=== PATIENT | female | born 1955 | race African-American/Black ===

== ENCOUNTER 2023-03-18 09:15 | Day surgery (SDC) | payer OTHER, SELFPAY ==
--- NOTE | 2023-03-14 12:02 | P.CONAN_ITS ---
Documented by User: Salena Luna NP 03/14/23 12:03 HPI - Anesthesia Eval Consult details Narrative: 67yo F for Left Cataract Extraction IOL Insertion Medically cleared No previous cataract on record Anesthesia Pre-Procedure Meds Is the patient on any of the following meds?: Dulaglutide (Trulicity) [facility] Past Medical History Medical History History of loss of consciousness Hx of hearing loss On supplemental oxygen by nasal cannula EDD treated with BiPAP Slow to wake up after anesthesia Pain in right shoulder Venereal warts Smoker Polymyalgia rheumatica PVD (peripheral vascular disease) OAB (overactive bladder) Sciatica Low back pain Osteoarthritis Obesity, morbid EDD (obstructive sleep apnea) Neuropathy Muscle cramps Insomnia Hx of hypoglycemia Hypertension Hyperlipemia Hx of fall Headache GERD (gastroesophageal reflux disease) Diabetes Loose, teeth Wears dentures Vitamin D deficiency Oxygen dependent Asthma COPD (chronic obstructive pulmonary disease) Systolic CHF Constipation CKD (chronic kidney disease) Anemia, iron deficiency Seasonal allergies Abnormal stress test Bilateral hearing loss Anxiety PAD (peripheral artery disease) Cataracts, bilateral Depression Stable angina Coronary artery disease LAMB (dyspnea on exertion) Claudication Surgical History Surgical History Hx of colonoscopy Hx laparoscopic cholecystectomy Hx of section Hx of CABG (2005) History of lobectomy of lung (~2016) Social History Social History Housing Other:: senior apartment Are you a primary resident care associate to a significant other at home: No Do you presently have visiting nurse or other home services: Yes ([employer] and very supportive daughter) Patient Tobacco Use Status: Former Tobacco user Quit Date: 2016 Tobacco use type: Cigarette Use of substances other than those prescribed or required for medical reasons: No Have you been hit, kicked, punched, or otherwise hurt by someone within the past year? If so, by whom?: No Are you DNR?: No Advance Directives: No Advance Directives Information Provided: Yes Advance Directives on File: No Recently lost weight without trying: No Meds Allergies Allergy/AdvReac Type Severity Reaction Status Date / Time ampicillin Allergy Intermediate Hives Verified 03/15/23 11:45 penicillin V [PENICILLIN V] Allergy Intermediate RASH Verified 03/15/23 11:45 shellfish derived Allergy Intermediate Hives Verified 03/15/23 11:45 Sulfa (Sulfonamide Allergy Intermediate rash, hives Verified 03/15/23 11:45 Antibiotics) [SULFA (SULFONAMIDE ANTIBIOTICS)] tramadol Allergy Intermediate Itching, Verified 03/15/23 11:45 GI upset codeine [CODEINE] AdvReac Intermediate NAUSEA & Verified 03/15/23 11:45 VOMITING, GI upset ibuprofen AdvReac Intermediate Gastrointestinal Verified 03/15/23 11:45 Upset morphine [MORPHINE] AdvReac Intermediate NAUSEA & Verified 03/15/23 11:45 VOMITING Home Medications Medication Instructions Recorded Confirmed Last Taken Type Humalog KwikPen Insulin 03/01/23 03/01/23 Unknown History acetaminophen 650 mg 1,300 mg PO Q8H 03/01/23 03/01/23 Unknown History tablet,extended release albuterol sulfate 90 mcg/actuation 2 puff inhalation Q6H PRN dyspnea 03/01/23 03/01/23 Unknown History aerosol inhaler aspirin 81 mg tablet,delayed 81 mg PO DAILY 03/01/23 03/01/23 Unknown History release carvedilol 6.25 mg tablet 6.25 mg PO BID 03/01/23 03/01/23 Unknown History cholecalciferol (vitamin D3) 125 125 mcg PO DAILY 03/01/23 03/01/23 Unknown History mcg (5,000 unit) capsule clonazepam 1 mg tablet 1 mg PO BID 03/01/23 03/01/23 Unknown History dapagliflozin propanediol 10 mg 10 mg PO DAILY 03/01/23 03/01/23 Unknown History tablet (Farxiga) dulaglutide 0.75 mg/0.5 mL 0.75 mg subcut .QWEDNESDAY 03/01/23 03/01/23 03/06/23 History subcutaneous pen injector (Trulicity) famotidine 20 mg tablet 20 mg PO BID 03/01/23 03/01/23 Unknown History fluticasone fur. 100 mcg-umeclid 1 ea inhalation DAILY 03/01/23 03/01/23 Unknown History 62.5 mcg-vilant 25 mcg inhalat.powder (Trelegy Ellipta) fluticasone propionate 50 1 spray intranasal 2XW 03/01/23 03/01/23 Unknown History mcg/actuation nasal spray,suspension furosemide 40 mg tablet 40 mg PO DAILY 03/01/23 03/01/23 Unknown History insulin glargine-yfgn 100 unit/mL 36 unit subcut QPM 03/01/23 03/01/23 Unknown History (3 mL) subcutaneous pen (Semglee (insulin glargine-yfgn) Pen) ipratropium 0.5 mg-albuterol 3 mg 3 ml inhalation QID PRN dyspnea 03/01/23 03/01/23 Unknown History (2.5 mg base)/3 mL nebulization soln isosorbide mononitrate 60 mg 90 mg PO DAILY 03/01/23 03/01/23 Unknown History tablet,extended release 24 hr ketotifen fumarate 0.025 % (0.035 1 drp ophthalmic (eye) BID PRN 03/01/23 03/01/23 Unknown History %) eye drops Allergy Symptoms lisinopril 20 mg tablet 10 mg PO DAILY 03/01/23 03/01/23 Unknown History lorazepam 1 mg tablet (Ativan) 1 mg PO BID 03/01/23 03/01/23 Unknown History nitroglycerin 0.4 mg sublingual 0.4 mg sublingual Q5M PRN Chest 03/01/23 03/01/23 Unknown History tablet (Nitrostat) Pain pregabalin 150 mg capsule 150 mg PO BID 03/01/23 03/01/23 Unknown History rosuvastatin 40 mg tablet 40 mg PO BEDTIME 03/01/23 03/01/23 Unknown History sennosides 8.6 mg-docusate sodium 2 tab-cap PO BEDTIME 03/01/23 03/01/23 Unknown History 50 mg tablet (Senna-S) venlafaxine 150 mg 150 mg PO DAILY@0730 03/01/23 03/01/23 Unknown History capsule,extended release 24 hr venlafaxine 75 mg tablet 75 mg PO BEDTIME 03/01/23 03/01/23 Unknown History vitamin B complex (Vitamins B 1 cap PO DAILY 03/01/23 03/01/23 Unknown History Complex capsule) Assessment and Plan Assessment Anesthesia Assessment: Chart Reviewed Documented by User: Latisha Gill MD 03/18/23 11:56 PMF Past Medical History Medical History History of loss of consciousness Hx of hearing loss On supplemental oxygen by nasal cannula EDD treated with BiPAP Slow to wake up after anesthesia Pain in right shoulder Venereal warts Smoker Polymyalgia rheumatica PVD (peripheral vascular disease) OAB (overactive bladder) Sciatica Low back pain Osteoarthritis Obesity, morbid EDD (obstructive sleep apnea) Neuropathy Muscle cramps Insomnia Hx of hypoglycemia Hypertension Hyperlipemia Hx of fall Headache GERD (gastroesophageal reflux disease) Diabetes Loose, teeth Wears dentures Vitamin D deficiency Oxygen dependent Asthma COPD (chronic obstructive pulmonary disease) Systolic CHF Constipation CKD (chronic kidney disease) Anemia, iron deficiency Seasonal allergies Abnormal stress test Bilateral hearing loss Anxiety PAD (peripheral artery disease) Cataracts, bilateral Depression Stable angina Coronary artery disease LAMB (dyspnea on exertion) Claudication Surgical History Surgical History Hx of colonoscopy Hx laparoscopic cholecystectomy Hx of section Hx of CABG (2005) History of lobectomy of lung (~2016) Social History Social History Housing Other:: senior apartment Are you a primary resident care associate to a significant other at home: No Do you presently have visiting nurse or other home services: Yes ([employer] and very supportive daughter) Patient Tobacco Use Status: Former Tobacco user Quit Date: 2016 Tobacco use type: Cigarette Use of substances other than those prescribed or required for medical reasons: No Have you been hit, kicked, punched, or otherwise hurt by someone within the past year? If so, by whom?: No Are you DNR?: No Advance Directives: No Advance Directives Information Provided: Yes Advance Directives on File: No Recently lost weight without trying: No Meds Allergies Allergy/AdvReac Type Severity Reaction Status Date / Time ampicillin Allergy Intermediate Hives Verified 03/15/23 11:45 penicillin V [PENICILLIN V] Allergy Intermediate RASH Verified 03/15/23 11:45 shellfish derived Allergy Intermediate Hives Verified 03/15/23 11:45 Sulfa (Sulfonamide Allergy Intermediate rash, hives Verified 03/15/23 11:45 Antibiotics) [SULFA (SULFONAMIDE ANTIBIOTICS)] tramadol Allergy Intermediate Itching, Verified 03/15/23 11:45 GI upset codeine [CODEINE] AdvReac Intermediate NAUSEA & Verified 03/15/23 11:45 VOMITING, GI upset ibuprofen AdvReac Intermediate Gastrointestinal Verified 03/15/23 11:45 Upset morphine [MORPHINE] AdvReac Intermediate NAUSEA & Verified 03/15/23 11:45 VOMITING Home Medications Medication Instructions Recorded Confirmed Last Taken Type Humalog KwikPen Insulin 03/01/23 03/01/23 Unknown History acetaminophen 650 mg 1,300 mg PO Q8H 03/01/23 03/01/23 Unknown History tablet,extended release albuterol sulfate 90 mcg/actuation 2 puff inhalation Q6H PRN dyspnea 03/01/23 03/01/23 Unknown History aerosol inhaler aspirin 81 mg tablet,delayed 81 mg PO DAILY 03/01/23 03/01/23 Unknown History release carvedilol 6.25 mg tablet 6.25 mg PO BID 03/01/23 03/01/23 Unknown History cholecalciferol (vitamin D3) 125 125 mcg PO DAILY 03/01/23 03/01/23 Unknown History mcg (5,000 unit) capsule clonazepam 1 mg tablet 1 mg PO BID 03/01/23 03/01/23 Unknown History dapagliflozin propanediol 10 mg 10 mg PO DAILY 03/01/23 03/01/23 Unknown History tablet (Farxiga) dulaglutide 0.75 mg/0.5 mL 0.75 mg subcut .QWEDNESDAY 03/01/23 03/01/23 03/06/23 History subcutaneous pen injector (Trulicity) famotidine 20 mg tablet 20 mg PO BID 03/01/23 03/01/23 Unknown History fluticasone fur. 100 mcg-umeclid 1 ea inhalation DAILY 03/01/23 03/01/23 Unknown History 62.5 mcg-vilant 25 mcg inhalat.powder (Trelegy Ellipta) fluticasone propionate 50 1 spray intranasal 2XW 03/01/23 03/01/23 Unknown History mcg/actuation nasal spray,suspension furosemide 40 mg tablet 40 mg PO DAILY 03/01/23 03/01/23 Unknown History insulin glargine-yfgn 100 unit/mL 36 unit subcut QPM 03/01/23 03/01/23 Unknown History (3 mL) subcutaneous pen (Semglee (insulin glargine-yfgn) Pen) ipratropium 0.5 mg-albuterol 3 mg 3 ml inhalation QID PRN dyspnea 03/01/23 03/01/23 Unknown History (2.5 mg base)/3 mL nebulization soln isosorbide mononitrate 60 mg 90 mg PO DAILY 03/01/23 03/01/23 Unknown History tablet,extended release 24 hr ketotifen fumarate 0.025 % (0.035 1 drp ophthalmic (eye) BID PRN 03/01/23 03/01/23 Unknown History %) eye drops Allergy Symptoms lisinopril 20 mg tablet 10 mg PO DAILY 03/01/23 03/01/23 Unknown History lorazepam 1 mg tablet (Ativan) 1 mg PO BID 03/01/23 03/01/23 Unknown History nitroglycerin 0.4 mg sublingual 0.4 mg sublingual Q5M PRN Chest 03/01/23 03/01/23 Unknown History tablet (Nitrostat) Pain pregabalin 150 mg capsule 150 mg PO BID 03/01/23 03/01/23 Unknown History rosuvastatin 40 mg tablet 40 mg PO BEDTIME 03/01/23 03/01/23 Unknown History sennosides 8.6 mg-docusate sodium 2 tab-cap PO BEDTIME 03/01/23 03/01/23 Unknown History 50 mg tablet (Senna-S) venlafaxine 150 mg 150 mg PO DAILY@0730 03/01/23 03/01/23 Unknown History capsule,extended release 24 hr venlafaxine 75 mg tablet 75 mg PO BEDTIME 03/01/23 03/01/23 Unknown History vitamin B complex (Vitamins B 1 cap PO DAILY 03/01/23 03/01/23 Unknown History Complex capsule) Exam Height,Weight and Vital Signs: Height 5 ft 2 in Weight 92.533 kg Vital Signs Temp Pulse Resp BP Pulse Ox O2 Del Method 03/18/23 11:10 97.9 F 67 18 163/70 H 98 Room Air Pertinent Lab Results Pertinent Lab Results: Lab Results 03/18/23 Range/Units 10:52 POC Glucose 182 H (60-115) mg/dL Documented by User: Antony Holguin MD 03/18/23 11:58 HPI - Anesthesia Eval Anesthesia Pre-Procedure Meds If Yes to any meds - educate patient: Pt education - increased risk of aspiration and Pt education - possibility of cancelled proc at provider's discretion PMFSH Past Medical History Medical History History of loss of consciousness Hx of hearing loss On supplemental oxygen by nasal cannula EDD treated with BiPAP Slow to wake up after anesthesia Pain in right shoulder Venereal warts Smoker Polymyalgia rheumatica PVD (peripheral vascular disease) OAB (overactive bladder) Sciatica Low back pain Osteoarthritis Obesity, morbid EDD (obstructive sleep apnea) Neuropathy Muscle cramps Insomnia Hx of hypoglycemia Hypertension Hyperlipemia Hx of fall Headache GERD (gastroesophageal reflux disease) Diabetes Loose, teeth Wears dentures Vitamin D deficiency Oxygen dependent Asthma COPD (chronic obstructive pulmonary disease) Systolic CHF Constipation CKD (chronic kidney disease) Anemia, iron deficiency Seasonal allergies Abnormal stress test Bilateral hearing loss Anxiety PAD (peripheral artery disease) Cataracts, bilateral Depression Stable angina Coronary artery disease LAMB (dyspnea on exertion) Claudication Family History Family history of problems with anesthesia: No Surgical History Surgical History Hx of colonoscopy Hx laparoscopic cholecystectomy Hx of section Hx of CABG (2005) History of lobectomy of lung (~2016) History of Problems with Anesthesia: No Social History Social History Housing Other:: senior apartment Are you a primary resident care associate to a significant other at home: No Do you presently have visiting nurse or other home services: Yes ([employer] and very supportive daughter) Patient Tobacco Use Status: Former Tobacco user Quit Date: 2016 Tobacco use type: Cigarette Use of substances other than those prescribed or required for medical reasons: No Have you been hit, kicked, punched, or otherwise hurt by someone within the past year? If so, by whom?: No Are you DNR?: No Advance Directives: No Advance Directives Information Provided: Yes Advance Directives on File: No Recently lost weight without trying: No Meds Allergies Allergy/AdvReac Type Severity Reaction Status Date / Time ampicillin Allergy Intermediate Hives Verified 03/15/23 11:45 penicillin V [PENICILLIN V] Allergy Intermediate RASH Verified 03/15/23 11:45 shellfish derived Allergy Intermediate Hives Verified 03/15/23 11:45 Sulfa (Sulfonamide Allergy Intermediate rash, hives Verified 03/15/23 11:45 Antibiotics) [SULFA (SULFONAMIDE ANTIBIOTICS)] tramadol Allergy Intermediate Itching, Verified 03/15/23 11:45 GI upset codeine [CODEINE] AdvReac Intermediate NAUSEA & Verified 03/15/23 11:45 VOMITING, GI upset ibuprofen AdvReac Intermediate Gastrointestinal Verified 03/15/23 11:45 Upset morphine [MORPHINE] AdvReac Intermediate NAUSEA & Verified 03/15/23 11:45 VOMITING Home Medications Medication Instructions Recorded Confirmed Last Taken Type Humalog KwikPen Insulin 03/01/23 03/01/23 Unknown History acetaminophen 650 mg 1,300 mg PO Q8H 03/01/23 03/01/23 Unknown History tablet,extended release albuterol sulfate 90 mcg/actuation 2 puff inhalation Q6H PRN dyspnea 03/01/23 03/01/23 Unknown History aerosol inhaler aspirin 81 mg tablet,delayed 81 mg PO DAILY 03/01/23 03/01/23 Unknown History release carvedilol 6.25 mg tablet 6.25 mg PO BID 03/01/23 03/01/23 Unknown History cholecalciferol (vitamin D3) 125 125 mcg PO DAILY 03/01/23 03/01/23 Unknown History mcg (5,000 unit) capsule clonazepam 1 mg tablet 1 mg PO BID 03/01/23 03/01/23 Unknown History dapagliflozin propanediol 10 mg 10 mg PO DAILY 03/01/23 03/01/23 Unknown History tablet (Farxiga) dulaglutide 0.75 mg/0.5 mL 0.75 mg subcut .QWEDNESDAY 03/01/23 03/01/23 03/06/23 History subcutaneous pen injector (Trulicity) famotidine 20 mg tablet 20 mg PO BID 03/01/23 03/01/23 Unknown History fluticasone fur. 100 mcg-umeclid 1 ea inhalation DAILY 03/01/23 03/01/23 Unknown History 62.5 mcg-vilant 25 mcg inhalat.powder (Trelegy Ellipta) fluticasone propionate 50 1 spray intranasal 2XW 03/01/23 03/01/23 Unknown History mcg/actuation nasal spray,suspension furosemide 40 mg tablet 40 mg PO DAILY 03/01/23 03/01/23 Unknown History insulin glargine-yfgn 100 unit/mL 36 unit subcut QPM 03/01/23 03/01/23 Unknown History (3 mL) subcutaneous pen (Semglee (insulin glargine-yfgn) Pen) ipratropium 0.5 mg-albuterol 3 mg 3 ml inhalation QID PRN dyspnea 03/01/23 03/01/23 Unknown History (2.5 mg base)/3 mL nebulization soln isosorbide mononitrate 60 mg 90 mg PO DAILY 03/01/23 03/01/23 Unknown History tablet,extended release 24 hr ketotifen fumarate 0.025 % (0.035 1 drp ophthalmic (eye) BID PRN 03/01/23 03/01/23 Unknown History %) eye drops Allergy Symptoms lisinopril 20 mg tablet 10 mg PO DAILY 03/01/23 03/01/23 Unknown History lorazepam 1 mg tablet (Ativan) 1 mg PO BID 03/01/23 03/01/23 Unknown History nitroglycerin 0.4 mg sublingual 0.4 mg sublingual Q5M PRN Chest 03/01/23 03/01/23 Unknown History tablet (Nitrostat) Pain pregabalin 150 mg capsule 150 mg PO BID 03/01/23 03/01/23 Unknown History rosuvastatin 40 mg tablet 40 mg PO BEDTIME 03/01/23 03/01/23 Unknown History sennosides 8.6 mg-docusate sodium 2 tab-cap PO BEDTIME 03/01/23 03/01/23 Unknown History 50 mg tablet (Senna-S) venlafaxine 150 mg 150 mg PO DAILY@0730 03/01/23 03/01/23 Unknown History capsule,extended release 24 hr venlafaxine 75 mg tablet 75 mg PO BEDTIME 03/01/23 03/01/23 Unknown History vitamin B complex (Vitamins B 1 cap PO DAILY 03/01/23 03/01/23 Unknown History Complex capsule) Exam Airway Mallampati Class: II TM Dist: >3cm Neck ROM: Full Loose/Missing/Broken Teeth: Yes Heart: [id number] Lungs: cta b/l Assessment and Plan Assessment Anesthesia Assessment: Anesthesia Plan Discussed Final Anesthetic Review Family History of Problems with Anesthesia: No History of Problems with Anesthesia: No NPO: Yes ASA Class: III Final Preanesthetic Review: No Changes in Pt Med Stat, Meds/Allgs Chart Reviewed, Consent Obtained/Reviewed and Anes Risks/Benef Reviewed Patient Risk: Intermediate Procedure Risk: Low Assessment/Block/Sedation in SS: Assess/Block/Sedation-SS Anesthetic Plan Anesthetic Plan: MAC: Disposition: Standard PACU
--- NOTE | 2023-03-15 08:25 | MHC.SHP ---
Pre-Procedural Eval Section A Date of Service: 03/15/23 The patient is an INPATIENT: No Changes since office visit: No Cold of Flu in the past 2 weeks, No New Medical Problems, No Changes in Medication and No Patient answered all questions The History & Physical has been completed within 30 days and I have reviewed it.: Yes Section B Chief Complaint: Age-related nuclear cataract, left eye Allergies: Allergies Allergy/AdvReac Type Severity Reaction Status Date / Time penicillin V [PENICILLIN V] Allergy Intermediate RASH Verified 03/01/23 16:49 Sulfa (Sulfonamide Allergy Intermediate rash, hives Verified 03/01/23 16:49 Antibiotics) [SULFA (SULFONAMIDE ANTIBIOTICS)] ampicillin Allergy Hives Verified 03/01/23 16:49 shellfish derived Allergy Unknown Verified 03/01/23 16:49 tramadol Allergy Itching, Verified 03/01/23 16:49 GI upset codeine [CODEINE] AdvReac Mild NAUSEA & Verified 03/01/23 16:49 VOMITING, GI upset morphine [MORPHINE] AdvReac Mild NAUSEA & Unverified 11/12/19 17:47 VOMITING Plan I have reviewed the history and physical and performed a pertinent physical examination on my patient. No changes have occurred unless specified. Time Spent With Patient Time: Total time managing care of this patient today ____ minutes.
[2023-03-15 11:42] VITALS: BMI 37.3
[2023-03-18] MEDS: Lactated Ringers 500 ML 50 ML IV (10:47)
[2023-03-18] MEDS: Phenylephrine HCL 2.5% Oph SoL 2 ML BOTTLE 1 DROP EYE-LEFT ×3 (10:48→10:57)
[2023-03-18] MEDS: Tropicamide 1 % Ophth Sol 3 ML BTL 1 DROP EYE-LEFT ×3 (10:48→10:58)
[2023-03-18] MEDS: Cyclopentolate 1 % Ophth Sol 2 ML DRPBTL 1 DROP EYE-LEFT ×3 (10:49→10:58)
[2023-03-18] MEDS: Ketorolac Tromethamine 0.5% Op 5 ML DROPS 1 DROP EYE-LEFT ×3 (10:49→10:58)
[2023-03-18 11:00] LABS: Glucose, Whole Blood 182 mg/dL (60-115)
[2023-03-18 11:10] VITALS: BP 163/70; PULSE 67; RESP 18; TEMP 36.6; O2SAT 98
--- NOTE | 2023-03-18 12:04 | MHC.SHP ---
Pre-Procedural Eval Section A Date of Service: 03/18/23 The patient is an INPATIENT: No Changes since office visit: No Cold of Flu in the past 2 weeks, No New Medical Problems, No Changes in Medication and No Patient answered all questions The History & Physical has been completed within 30 days and I have reviewed it.: Yes Section B Chief Complaint: Age-related nuclear cataract, left eye Allergies: Allergies Allergy/AdvReac Type Severity Reaction Status Date / Time ampicillin Allergy Intermediate Hives Verified 03/15/23 11:45 penicillin V [PENICILLIN V] Allergy Intermediate RASH Verified 03/15/23 11:45 shellfish derived Allergy Intermediate Hives Verified 03/15/23 11:45 Sulfa (Sulfonamide Allergy Intermediate rash, hives Verified 03/15/23 11:45 Antibiotics) [SULFA (SULFONAMIDE ANTIBIOTICS)] tramadol Allergy Intermediate Itching, Verified 03/15/23 11:45 GI upset codeine [CODEINE] AdvReac Intermediate NAUSEA & Verified 03/15/23 11:45 VOMITING, GI upset ibuprofen AdvReac Intermediate Gastrointestinal Verified 03/15/23 11:45 Upset morphine [MORPHINE] AdvReac Intermediate NAUSEA & Verified 03/15/23 11:45 VOMITING Plan Diagnosis/Plan: Unchanged I have reviewed the history and physical and performed a pertinent physical examination on my patient. No changes have occurred unless specified. Time Spent With Patient Time: Total time managing care of this patient today ____ minutes.
--- NOTE | 2023-03-18 12:06 | HO.PNOPHT ---
Ophthalmology Procedure Procedure Date of Service: 03/18/23 Ophthalmology Viscoelastic: Healkenneth Duet Dual Pack Pro Ophthalmology Lenses: TECNIS [id number] (21.5) Procedure Notes: PREOPERATIVE DIAGNOSIS: Decreased visual acuity left eye secondary to cataract POSTOPERATIVE DIAGNOSIS: Same PROCEDURE: Left cataract extraction with intraocular lens insertion SURGEON: Sharan Hui M.D. ANESTHESIA: Topical/MAC ESTIMATED BLOOD LOSS: None COMPLICATIONS: None After obtaining informed consent, the patient was brought to the operation room suite and placed in the supine position. After adequate sedation per anesthesia, topical drops of Tetracaine were given to the left eye. The eye was then prepped and draped in the usual sterile fashion. The operating room microscope was then positioned over the operative eye and a lid speculum placed. A paracentesis was created. Viscoelastic was then instilled into the anterior chamber. A three plane incision was then created temporally, utilizing a 2.85 mm keratome. Capsulotomy forceps were then utilized to create a circular tear capsulotomy. Hydrodissection and hydrodelineation were carried out until adequate mobilization of the nucleus occurred. Phacoemulsification was then utilized to remove the dense central nucleus followed by removal of the cortical material utilizing the automated aspiration irrigation unit. Viscoat elastic was instilled into the posterior capsular bag followed by placement of a posterior chamber intraocular lens without difficulty. The residual Viscoat elastic was then removed utilizing the automated IA machine. The wound was check and found to be watertight. The patient tolerated the procedure well and the lid speculum was removed. Intracameral injection of Vigamox 0.1 mL followed by a subtenon injection of Kenalog-40 0.2 mL were administered. The patient will be seen in the a.m.
[2023-03-18 12:31] VITALS: BP 158/75; PULSE 67; RESP 18; TEMP 36.2; O2SAT 95
[2023-03-18 12:36] VITALS: BP 176/69; PULSE 67; RESP 16; TEMP 36.1; O2SAT 93
== END 2023-03-18 12:48 | disposition home or self-care (01) ==
PROVIDERS: PCP Internal Medicine Rheumatology; Visit Provider Ophthalmology
PROC: (CPT 66985; principal; 2023-03-18 11:20)
DX: H25.12 Age-related nuclear cataract, left eye (principal); Z83.511 Family history of glaucoma; H18.413 Arcus senilis, bilateral; H35.361 Drusen (degenerative) of macula, right eye; I10 Essential (primary) hypertension; E11.9 Type 2 diabetes mellitus without complications; J44.9 Chronic obstructive pulmonary disease, unspecified; E78.00 Pure hypercholesterolemia, unspecified; I25.10 Atherosclerotic heart disease of native coronary artery without angina pectoris; Z95.1 Presence of aortocoronary bypass graft; G47.33 Obstructive sleep apnea (adult) (pediatric); M35.3 Polymyalgia rheumatica; Z79.4 Long term (current) use of insulin; Z79.85 Long-term (current) use of injectable non-insulin antidiabetic drugs; Z79.51 Long term (current) use of inhaled steroids; Z79.82 Long term (current) use of aspirin; Z88.0 Allergy status to penicillin; Z88.1 Allergy status to other antibiotic agents; Z88.2 Allergy status to sulfonamides; Z88.8 Allergy status to other drugs, medicaments and biological substances; Z87.891 Personal history of nicotine dependence
CPT/HCPCS: 66984; 82947; J2250; J3010; J3301; V2632

== ENCOUNTER 2023-03-25 07:30 | Day surgery (SDC) | payer OTHER, SELFPAY ==
--- NOTE | 2023-03-01 08:09 | MHC.SHP ---
Pre-Procedural Eval Section A Date of Service: 03/01/23 The patient is an INPATIENT: No Changes since office visit: No Cold of Flu in the past 2 weeks, No New Medical Problems, No Changes in Medication and No Patient answered all questions The History & Physical has been completed within 30 days and I have reviewed it.: Yes Section B Chief Complaint: Age-related nuclear cataract, right eye Allergies: Allergies Allergy/AdvReac Type Severity Reaction Status Date / Time penicillin V [PENICILLIN V] Allergy Intermediate RASH Unverified 11/12/19 17:47 Sulfa (Sulfonamide Allergy Intermediate RASH Unverified 11/12/19 17:47 Antibiotics) [SULFA (SULFONAMIDE ANTIBIOTICS)] codeine [CODEINE] AdvReac Mild NAUSEA & Unverified 11/12/19 17:47 VOMITING morphine [MORPHINE] AdvReac Mild NAUSEA & Unverified 11/12/19 17:47 VOMITING Codeine Allergy Unknown Uncoded 07/02/13 00:00 Plan Diagnosis/Plan: Unchanged I have reviewed the history and physical and performed a pertinent physical examination on my patient. No changes have occurred unless specified. Time Spent With Patient Time: Total time managing care of this patient today ____ minutes.
[2023-03-01 08:52] VITALS: BMI 37.5
--- NOTE | 2023-03-01 09:36 | HO.ANESPROP2 ---
Documented by User: Salena Luna NP 03/01/23 09:40 HPI - Anesthesia Eval Consult details Narrative: 67yo F for Right Cataract Multifocal with IOL Insertion Medically cleared No previous cataract on record Anesthesia Pre-Procedure Meds Is the patient on any of the following meds?: Dulaglutide (Trulicity) [facility] Past Medical History Medical History History of loss of consciousness Hx of hearing loss On supplemental oxygen by nasal cannula EDD treated with BiPAP Slow to wake up after anesthesia Pain in right shoulder Venereal warts Smoker Polymyalgia rheumatica PVD (peripheral vascular disease) OAB (overactive bladder) Sciatica Low back pain Osteoarthritis Obesity, morbid EDD (obstructive sleep apnea) Neuropathy Muscle cramps Insomnia Hx of hypoglycemia Hypertension Hyperlipemia Hx of fall Headache GERD (gastroesophageal reflux disease) Diabetes Loose, teeth Wears dentures Vitamin D deficiency Oxygen dependent Asthma COPD (chronic obstructive pulmonary disease) Systolic CHF Constipation CKD (chronic kidney disease) Anemia, iron deficiency Seasonal allergies Abnormal stress test Bilateral hearing loss Anxiety PAD (peripheral artery disease) Cataracts, bilateral Depression Stable angina Coronary artery disease LAMB (dyspnea on exertion) Claudication Surgical History Surgical History Hx of colonoscopy Hx laparoscopic cholecystectomy Hx of section Hx of CABG (2005) History of lobectomy of lung (~2016) Social History Social History Housing Other:: senior apartment Are you a primary in home caregiver to a significant other at home: No Do you presently have visiting nurse or other home services: Yes ([employer] and very supportive daughter) Patient Tobacco Use Status: Former Tobacco user Quit Date: 2016 Tobacco use type: Cigarette Use of substances other than those prescribed or required for medical reasons: No Have you been hit, kicked, punched, or otherwise hurt by someone within the past year? If so, by whom?: No Are you DNR?: No Advance Directives: No Advance Directives Information Provided: Yes Advance Directives on File: No Recently lost weight without trying: No Meds Allergies Allergy/AdvReac Type Severity Reaction Status Date / Time ampicillin Allergy Intermediate Hives Verified 03/15/23 11:45 penicillin V [PENICILLIN V] Allergy Intermediate RASH Verified 03/15/23 11:45 shellfish derived Allergy Intermediate Hives Verified 03/15/23 11:45 Sulfa (Sulfonamide Allergy Intermediate rash, hives Verified 03/15/23 11:45 Antibiotics) [SULFA (SULFONAMIDE ANTIBIOTICS)] tramadol Allergy Intermediate Itching, Verified 03/15/23 11:45 GI upset codeine [CODEINE] AdvReac Intermediate NAUSEA & Verified 03/15/23 11:45 VOMITING, GI upset ibuprofen AdvReac Intermediate Gastrointestinal Verified 03/15/23 11:45 Upset morphine [MORPHINE] AdvReac Intermediate NAUSEA & Verified 03/15/23 11:45 VOMITING Home Medications Medication Instructions Recorded Confirmed Last Taken Type Humalog KwikPen Insulin 03/01/23 03/01/23 Unknown History acetaminophen 650 mg 1,300 mg PO Q8H 03/01/23 03/01/23 Unknown History tablet,extended release albuterol sulfate 90 mcg/actuation 2 puff inhalation Q6H PRN dyspnea 03/01/23 03/01/23 Unknown History aerosol inhaler aspirin 81 mg tablet,delayed 81 mg PO DAILY 03/01/23 03/01/23 Unknown History release carvedilol 6.25 mg tablet 6.25 mg PO BID 03/01/23 03/01/23 Unknown History cholecalciferol (vitamin D3) 125 125 mcg PO DAILY 03/01/23 03/01/23 Unknown History mcg (5,000 unit) capsule clonazepam 1 mg tablet 1 mg PO BID 03/01/23 03/01/23 Unknown History dapagliflozin propanediol 10 mg 10 mg PO DAILY 03/01/23 03/01/23 Unknown History tablet (Farxiga) dulaglutide 0.75 mg/0.5 mL 0.75 mg subcut .QWEDNESDAY 03/01/23 03/01/23 03/06/23 History subcutaneous pen injector (Trulicity) famotidine 20 mg tablet 20 mg PO BID 03/01/23 03/01/23 Unknown History fluticasone fur. 100 mcg-umeclid 1 ea inhalation DAILY 03/01/23 03/01/23 Unknown History 62.5 mcg-vilant 25 mcg inhalat.powder (Trelegy Ellipta) fluticasone propionate 50 1 spray intranasal 2XW 03/01/23 03/01/23 Unknown History mcg/actuation nasal spray,suspension furosemide 40 mg tablet 40 mg PO DAILY 03/01/23 03/01/23 Unknown History insulin glargine-yfgn 100 unit/mL 36 unit subcut QPM 03/01/23 03/01/23 Unknown History (3 mL) subcutaneous pen (Semglee (insulin glargine-yfgn) Pen) ipratropium 0.5 mg-albuterol 3 mg 3 ml inhalation QID PRN dyspnea 03/01/23 03/01/23 Unknown History (2.5 mg base)/3 mL nebulization soln isosorbide mononitrate 60 mg 90 mg PO DAILY 03/01/23 03/01/23 Unknown History tablet,extended release 24 hr ketotifen fumarate 0.025 % (0.035 1 drp ophthalmic (eye) BID PRN 03/01/23 03/01/23 Unknown History %) eye drops Allergy Symptoms lisinopril 20 mg tablet 10 mg PO DAILY 03/01/23 03/01/23 Unknown History lorazepam 1 mg tablet (Ativan) 1 mg PO BID 03/01/23 03/01/23 Unknown History nitroglycerin 0.4 mg sublingual 0.4 mg sublingual Q5M PRN Chest 03/01/23 03/01/23 Unknown History tablet (Nitrostat) Pain pregabalin 150 mg capsule 150 mg PO BID 03/01/23 03/01/23 Unknown History rosuvastatin 40 mg tablet 40 mg PO BEDTIME 03/01/23 03/01/23 Unknown History sennosides 8.6 mg-docusate sodium 2 tab-cap PO BEDTIME 03/01/23 03/01/23 Unknown History 50 mg tablet (Senna-S) venlafaxine 150 mg 150 mg PO DAILY@0730 03/01/23 03/01/23 Unknown History capsule,extended release 24 hr venlafaxine 75 mg tablet 75 mg PO BEDTIME 03/01/23 03/01/23 Unknown History vitamin B complex (Vitamins B 1 cap PO DAILY 03/01/23 03/01/23 Unknown History Complex capsule) Exam Height,Weight and Vital Signs: Height 5 ft 2 in Weight 92.986 kg Assessment and Plan Assessment Anesthesia Assessment: Chart Reviewed Documented by User: Antony Holguin MD 03/25/23 08:40 HPI - Anesthesia Eval Anesthesia Pre-Procedure Meds If Yes to any meds - educate patient: Pt education - increased risk of aspiration and Pt education - possibility of cancelled proc at provider's discretion PMFSH Past Medical History Medical History History of loss of consciousness Hx of hearing loss On supplemental oxygen by nasal cannula EDD treated with BiPAP Slow to wake up after anesthesia Pain in right shoulder Venereal warts Smoker Polymyalgia rheumatica PVD (peripheral vascular disease) OAB (overactive bladder) Sciatica Low back pain Osteoarthritis Obesity, morbid EDD (obstructive sleep apnea) Neuropathy Muscle cramps Insomnia Hx of hypoglycemia Hypertension Hyperlipemia Hx of fall Headache GERD (gastroesophageal reflux disease) Diabetes Loose, teeth Wears dentures Vitamin D deficiency Oxygen dependent Asthma COPD (chronic obstructive pulmonary disease) Systolic CHF Constipation CKD (chronic kidney disease) Anemia, iron deficiency Seasonal allergies Abnormal stress test Bilateral hearing loss Anxiety PAD (peripheral artery disease) Cataracts, bilateral Depression Stable angina Coronary artery disease LAMB (dyspnea on exertion) Claudication Family History Family history of problems with anesthesia: No Surgical History Surgical History Hx of colonoscopy Hx laparoscopic cholecystectomy Hx of section Hx of CABG (2005) History of lobectomy of lung (~2016) History of Problems with Anesthesia: No Social History Social History Housing Other:: senior apartment Are you a primary in home caregiver to a significant other at home: No Do you presently have visiting nurse or other home services: Yes (BAYRON Martinez and very supportive daughter) Patient Tobacco Use Status: Former Tobacco user Quit Date: 2016 Tobacco use type: Cigarette Use of substances other than those prescribed or required for medical reasons: No Have you been hit, kicked, punched, or otherwise hurt by someone within the past year? If so, by whom?: No Are you DNR?: No Advance Directives: No Advance Directives Information Provided: Yes Advance Directives on File: No Recently lost weight without trying: No Meds Allergies Allergy/AdvReac Type Severity Reaction Status Date / Time ampicillin Allergy Intermediate Hives Verified 03/15/23 11:45 penicillin V [PENICILLIN V] Allergy Intermediate RASH Verified 03/15/23 11:45 shellfish derived Allergy Intermediate Hives Verified 03/15/23 11:45 Sulfa (Sulfonamide Allergy Intermediate rash, hives Verified 03/15/23 11:45 Antibiotics) [SULFA (SULFONAMIDE ANTIBIOTICS)] tramadol Allergy Intermediate Itching, Verified 03/15/23 11:45 GI upset codeine [CODEINE] AdvReac Intermediate NAUSEA & Verified 03/15/23 11:45 VOMITING, GI upset ibuprofen AdvReac Intermediate Gastrointestinal Verified 03/15/23 11:45 Upset morphine [MORPHINE] AdvReac Intermediate NAUSEA & Verified 03/15/23 11:45 VOMITING Home Medications Medication Instructions Recorded Confirmed Last Taken Type Humalog KwikPen Insulin 03/01/23 03/01/23 Unknown History acetaminophen 650 mg 1,300 mg PO Q8H 03/01/23 03/01/23 Unknown History tablet,extended release albuterol sulfate 90 mcg/actuation 2 puff inhalation Q6H PRN dyspnea 03/01/23 03/01/23 Unknown History aerosol inhaler aspirin 81 mg tablet,delayed 81 mg PO DAILY 03/01/23 03/01/23 Unknown History release carvedilol 6.25 mg tablet 6.25 mg PO BID 03/01/23 03/01/23 Unknown History cholecalciferol (vitamin D3) 125 125 mcg PO DAILY 03/01/23 03/01/23 Unknown History mcg (5,000 unit) capsule clonazepam 1 mg tablet 1 mg PO BID 03/01/23 03/01/23 Unknown History dapagliflozin propanediol 10 mg 10 mg PO DAILY 03/01/23 03/01/23 Unknown History tablet (Farxiga) dulaglutide 0.75 mg/0.5 mL 0.75 mg subcut .QWEDNESDAY 03/01/23 03/01/23 03/06/23 History subcutaneous pen injector ([facility]) famotidine 20 mg tablet 20 mg PO BID 03/01/23 03/01/23 Unknown History fluticasone fur. 100 mcg-umeclid 1 ea inhalation DAILY 03/01/23 03/01/23 Unknown History 62.5 mcg-vilant 25 mcg inhalat.powder (Trelegy Ellipta) fluticasone propionate 50 1 spray intranasal 2XW 03/01/23 03/01/23 Unknown History mcg/actuation nasal spray,suspension furosemide 40 mg tablet 40 mg PO DAILY 03/01/23 03/01/23 Unknown History insulin glargine-yfgn 100 unit/mL 36 unit subcut QPM 03/01/23 03/01/23 Unknown History (3 mL) subcutaneous pen (Semglee (insulin glargine-yfgn) Pen) ipratropium 0.5 mg-albuterol 3 mg 3 ml inhalation QID PRN dyspnea 03/01/23 03/01/23 Unknown History (2.5 mg base)/3 mL nebulization soln isosorbide mononitrate 60 mg 90 mg PO DAILY 03/01/23 03/01/23 Unknown History tablet,extended release 24 hr ketotifen fumarate 0.025 % (0.035 1 drp ophthalmic (eye) BID PRN 03/01/23 03/01/23 Unknown History %) eye drops Allergy Symptoms lisinopril 20 mg tablet 10 mg PO DAILY 03/01/23 03/01/23 Unknown History lorazepam 1 mg tablet (Ativan) 1 mg PO BID 03/01/23 03/01/23 Unknown History nitroglycerin 0.4 mg sublingual 0.4 mg sublingual Q5M PRN Chest 03/01/23 03/01/23 Unknown History tablet (Nitrostat) Pain pregabalin 150 mg capsule 150 mg PO BID 03/01/23 03/01/23 Unknown History rosuvastatin 40 mg tablet 40 mg PO BEDTIME 03/01/23 03/01/23 Unknown History sennosides 8.6 mg-docusate sodium 2 tab-cap PO BEDTIME 03/01/23 03/01/23 Unknown History 50 mg tablet (Senna-S) venlafaxine 150 mg 150 mg PO DAILY@0730 03/01/23 03/01/23 Unknown History capsule,extended release 24 hr venlafaxine 75 mg tablet 75 mg PO BEDTIME 03/01/23 03/01/23 Unknown History vitamin B complex (Vitamins B 1 cap PO DAILY 03/01/23 03/01/23 Unknown History Complex capsule) Exam Airway Mallampati Class: II TM Dist: >3cm Neck ROM: Full Loose/Missing/Broken Teeth: Yes Heart: [id number] Lungs: cta b/l Assessment and Plan Assessment Anesthesia Assessment: Anesthesia Plan Discussed Final Anesthetic Review Family History of Problems with Anesthesia: No History of Problems with Anesthesia: No NPO: Yes ASA Class: III Final Preanesthetic Review: No Changes in Pt Med Stat, Meds/Allgs Chart Reviewed, Consent Obtained/Reviewed and Anes Risks/Benef Reviewed Patient Risk: High Procedure Risk: Low Assessment/Block/Sedation in SS: Assess/Block/Sedation-SS Anesthetic Plan Anesthetic Plan: MAC: and Agree w/ Assess. and Plan Disposition: Standard PACU
[2023-03-15 11:54] VITALS: BMI 37.3
[2023-03-25 07:51] VITALS: BMI 38.0
[2023-03-25] MEDS: Lactated Ringers 500 ML 50 ML IV (08:18)
[2023-03-25] MEDS: Tetracaine HCl/PF 0.5% Oph Sol 4 ML DROPS 1 DROP EYE-RIGHT (08:20)
--- NOTE | 2023-03-25 08:20 | P.CONAN_ITS ---
HPI - Anesthesia Eval Consult details Narrative: for cataract PMFSH Past Medical History Medical History History of loss of consciousness Hx of hearing loss On supplemental oxygen by nasal cannula EDD treated with BiPAP Slow to wake up after anesthesia Pain in right shoulder Venereal warts Smoker Polymyalgia rheumatica PVD (peripheral vascular disease) OAB (overactive bladder) Sciatica Low back pain Osteoarthritis Obesity, morbid EDD (obstructive sleep apnea) Neuropathy Muscle cramps Insomnia Hx of hypoglycemia Hypertension Hyperlipemia Hx of fall Headache GERD (gastroesophageal reflux disease) Diabetes Loose, teeth Wears dentures Vitamin D deficiency Oxygen dependent Asthma COPD (chronic obstructive pulmonary disease) Systolic CHF Constipation CKD (chronic kidney disease) Anemia, iron deficiency Seasonal allergies Abnormal stress test Bilateral hearing loss Anxiety PAD (peripheral artery disease) Cataracts, bilateral Depression Stable angina Coronary artery disease LAMB (dyspnea on exertion) Claudication Family History Family history of problems with anesthesia: No Surgical History Surgical History Hx of colonoscopy Hx laparoscopic cholecystectomy Hx of section Hx of CABG (2005) History of lobectomy of lung (~2017) History of Problems with Anesthesia: No Social History Social History Housing Other:: senior apartment Are you a primary managed care coordinator to a significant other at home: No Do you presently have visiting nurse or other home services: Yes (BAYRON [facility] [employer] and very supportive daughter) Patient Tobacco Use Status: Former Tobacco user Quit Date: 2016 Tobacco use type: Cigarette Use of substances other than those prescribed or required for medical reasons: No Have you been hit, kicked, punched, or otherwise hurt by someone within the past year? If so, by whom?: No Are you DNR?: No Advance Directives: No Advance Directives Information Provided: Yes Advance Directives on File: No Recently lost weight without trying: No Meds Allergies Allergy/AdvReac Type Severity Reaction Status Date / Time ampicillin Allergy Intermediate Hives Verified 03/15/23 11:45 penicillin V [PENICILLIN V] Allergy Intermediate RASH Verified 03/15/23 11:45 shellfish derived Allergy Intermediate Hives Verified 03/15/23 11:45 Sulfa (Sulfonamide Allergy Intermediate rash, hives Verified 03/15/23 11:45 Antibiotics) [SULFA (SULFONAMIDE ANTIBIOTICS)] tramadol Allergy Intermediate Itching, Verified 03/15/23 11:45 GI upset codeine [CODEINE] AdvReac Intermediate NAUSEA & Verified 03/15/23 11:45 VOMITING, GI upset ibuprofen AdvReac Intermediate Gastrointestinal Verified 03/15/23 11:45 Upset morphine [MORPHINE] AdvReac Intermediate NAUSEA & Verified 03/15/23 11:45 VOMITING Active Medications: Current Medications Albuterol Sulfate (Albuterol Sulfate (0.083%) 2.5 Mg/3 Ml Vial.Neb) 2.5 mg INHALE ONCE PRN PRN Reason: Shortness of Breath/Wheezing Lactated Ringer's (Lr) 500 mls @ 50 mls/hr IV .Q10H BRADY Stop: 03/25/23 17:44 Last Admin: 03/25/23 08:18 Dose: 50 mls/hr Povidone Iodine (Povidone Iodine 5 % Oph Soln 30 Ml Bottle) 1 appl EYE-RIGHT PREOP PRN PRN Reason: Pre-Op Surgical Implant Prophy Home Medications Medication Instructions Recorded Confirmed Last Taken Type Humalog KwikPen Insulin 03/01/23 03/01/23 Unknown History acetaminophen 650 mg 1,300 mg PO Q8H 03/01/23 03/01/23 Unknown History tablet,extended release albuterol sulfate 90 mcg/actuation 2 puff inhalation Q6H PRN dyspnea 03/01/23 03/01/23 Unknown History aerosol inhaler aspirin 81 mg tablet,delayed 81 mg PO DAILY 03/01/23 03/01/23 Unknown History release carvedilol 6.25 mg tablet 6.25 mg PO BID 03/01/23 03/01/23 Unknown History cholecalciferol (vitamin D3) 125 125 mcg PO DAILY 03/01/23 03/01/23 Unknown History mcg (5,000 unit) capsule clonazepam 1 mg tablet 1 mg PO BID 03/01/23 03/01/23 Unknown History dapagliflozin propanediol 10 mg 10 mg PO DAILY 03/01/23 03/01/23 Unknown History tablet (Farxiga) dulaglutide 0.75 mg/0.5 mL 0.75 mg subcut .QWEDNESDAY 03/01/2303/01/24 01/10/24 History subcutaneous pen injector (Trulicity) famotidine 20 mg tablet 20 mg PO BID 03/01/23 03/01/23 Unknown History fluticasone fur. 100 mcg-umeclid 1 ea inhalation DAILY 03/01/23 03/01/23 Unknown History 62.5 mcg-vilant 25 mcg inhalat.powder (Trelegy Ellipta) fluticasone propionate 50 1 spray intranasal 2XW 03/01/23 03/01/23 Unknown History mcg/actuation nasal spray,suspension furosemide 40 mg tablet 40 mg PO DAILY 03/01/23 03/01/23 Unknown History insulin glargine-yfgn 100 unit/mL 36 unit subcut QPM 03/01/23 03/01/23 Unknown History (3 mL) subcutaneous pen (Semglee (insulin glargine-yfgn) Pen) ipratropium 0.5 mg-albuterol 3 mg 3 ml inhalation QID PRN dyspnea 03/01/23 03/01/23 Unknown History (2.5 mg base)/3 mL nebulization soln isosorbide mononitrate 60 mg 90 mg PO DAILY 03/01/23 03/01/23 Unknown History tablet,extended release 24 hr ketotifen fumarate 0.025 % (0.035 1 drp ophthalmic (eye) BID PRN 03/01/23 03/01/23 Unknown History %) eye drops Allergy Symptoms lisinopril 20 mg tablet 10 mg PO DAILY 03/01/23 03/01/23 Unknown History lorazepam 1 mg tablet (Ativan) 1 mg PO BID 03/01/23 03/01/23 Unknown History nitroglycerin 0.4 mg sublingual 0.4 mg sublingual Q5M PRN Chest 03/01/23 03/01/23 Unknown History tablet (Nitrostat) Pain pregabalin 150 mg capsule 150 mg PO BID 03/01/23 03/01/23 Unknown History rosuvastatin 40 mg tablet 40 mg PO BEDTIME 03/01/23 03/01/23 Unknown History sennosides 8.6 mg-docusate sodium 2 tab-cap PO BEDTIME 03/01/23 03/01/23 Unknown History 50 mg tablet (Senna-S) venlafaxine 150 mg 150 mg PO DAILY@0730 03/01/23 03/01/23 Unknown History capsule,extended release 24 hr venlafaxine 75 mg tablet 75 mg PO BEDTIME 03/01/23 03/01/23 Unknown History vitamin B complex (Vitamins B 1 cap PO DAILY 03/01/23 03/01/23 Unknown History Complex capsule) Exam Height,Weight and Vital Signs: Height 5 ft 2 in Weight 94.347 kg Airway Mallampati Class: II TM Dist: >3cm Heart: rrr Lungs: cough, rhonchi Assessment and Plan Assessment Anesthesia Assessment: Anesthesia Plan Discussed and Chart Reviewed Final Anesthetic Review Family History of Problems with Anesthesia: No History of Problems with Anesthesia: No NPO: Yes ASA Class: III Final Preanesthetic Review: No Changes in Pt Med Stat, Meds/Allgs Chart Reviewed, Consent Obtained/Reviewed and Anes Risks/Benef Reviewed Patient Risk: Intermediate Procedure Risk: Low Anesthetic Plan Anesthetic Plan: MAC: Disposition: Standard PACU
[2023-03-25] MEDS: Tropicamide 1 % Ophth Sol 3 ML BTL 1 DROP EYE-RIGHT ×3 (08:21→08:27)
[2023-03-25] MEDS: Cyclopentolate 1 % Ophth Sol 2 ML DRPBTL 1 DROP EYE-RIGHT ×3 (08:21→08:27)
[2023-03-25] MEDS: Phenylephrine HCL 2.5% Oph SoL 2 ML BOTTLE 1 DROP EYE-RIGHT ×3 (08:22→08:29)
[2023-03-25] MEDS: Ketorolac Tromethamine 0.5% Op 5 ML DROPS 1 DROP EYE-RIGHT ×3 (08:22→08:28)
[2023-03-25 08:28] LABS: Glucose, Whole Blood 155 mg/dL (60-115)
--- NOTE | 2023-03-25 08:51 | MHC.SHP ---
Pre-Procedural Eval Section A - 24 Hr Update-Section A only Date of Service: 03/25/23 The patient is an INPATIENT: No Changes since office visit: No Cold of Flu in the past 2 weeks, No New Medical Problems, No Changes in Medication and No Patient answered all questions The patient has been examined within 24 hours of the surgical procedure. The History & Physical has been completed within 30 days and I have reviewed it.: Yes Section B - Complete if H&P > 30 days Chief Complaint: Age-related nuclear cataract, right eye Allergies: Allergies Allergy/AdvReac Type Severity Reaction Status Date / Time ampicillin Allergy Intermediate Hives Verified 03/15/23 11:45 penicillin V [PENICILLIN V] Allergy Intermediate RASH Verified 03/15/23 11:45 shellfish derived Allergy Intermediate Hives Verified 03/15/23 11:45 Sulfa (Sulfonamide Allergy Intermediate rash, hives Verified 03/15/23 11:45 Antibiotics) [SULFA (SULFONAMIDE ANTIBIOTICS)] tramadol Allergy Intermediate Itching, Verified 03/15/23 11:45 GI upset codeine [CODEINE] AdvReac Intermediate NAUSEA & Verified 03/15/23 11:45 VOMITING, GI upset ibuprofen AdvReac Intermediate Gastrointestinal Verified 03/15/23 11:45 Upset morphine [MORPHINE] AdvReac Intermediate NAUSEA & Verified 03/15/23 11:45 VOMITING Plan Diagnosis/Plan: Unchanged I have reviewed the history and physical and performed a pertinent physical examination on my patient. No changes have occurred unless specified. Time Spent With Patient Time: Total time managing care of this patient today ____ minutes.
--- NOTE | 2023-03-25 08:51 | HO.PNOPHT ---
Ophthalmology Procedure Procedure Date of Service: 03/25/23 Ophthalmology Viscoelastic: Pat Gregoryt Dual Pack Pro Ophthalmology Lenses: TECNOLBERTO [id number] (21) Procedure Notes: PREOPERATIVE DIAGNOSIS: Decreased visual acuity right eye secondary to cataract POSTOPERATIVE DIAGNOSIS: Same PROCEDURE: Right cataract extraction with intraocular lens insertion SURGEON: Sharan Hui M.D. ANESTHESIA: Topical/MAC ESTIMATED BLOOD LOSS: None COMPLICATIONS: None After obtaining informed consent, the patient was brought to the operating room suite and placed in the supine position. After adequate sedation per anesthesia, topical drops of Tetracaine were given to the right eye. The eye was then prepped and draped in the usual sterile fashion. The operating room microscope was then positioned over the operative eye and a lid speculum placed. A paracentesis was created. Viscoelastic was then instilled into the anterior chamber. A three plane incision was then created temporally, utilizing a 2.85 mm keratome. Capsulotomy forceps were then utilized to create a circular tear capsulotomy. Hydrodissection and hydrodelineation were carried out until adequate mobilization of the nucleus occurred. Phacoemulsification was then utilized to remove the dense central nucleus followed by removal of the cortical material utilizing the automated aspiration irrigation unit. Viscoelastic was instilled into the posterior capsular bag followed by placement of a posterior chamber intraocular lens without difficulty. The residual Viscoelastic was then removed utilizing the automated IA machine. The wound was checked and found to be watertight. The patient tolerated the procedure well and the lid speculum was removed. Intracameral injection of Vigamox 0.1 mL followed by a subtenon injection of Kenalog-40 0.2 mL were administered. The patient will be seen in the a.m.
[2023-03-25 08:54] VITALS: BP 165/60; PULSE 75; RESP 16; TEMP 35.7; O2SAT 93
[2023-03-25 09:25] VITALS: BP 156/56; PULSE 64; RESP 16; TEMP 36.3; O2SAT 94
== END 2023-03-25 09:38 | disposition home or self-care (01) ==
PROVIDERS: PCP Internal Medicine Rheumatology; Visit Provider Ophthalmology
PROC: (CPT 66985; principal; 2023-03-25 09:40)
DX: H25.11 Age-related nuclear cataract, right eye (principal); H54.7 Unspecified visual loss; E11.22 Type 2 diabetes mellitus with diabetic chronic kidney disease; I13.0 Hypertensive heart and chronic kidney disease with heart failure and stage 1 through stage 4 chronic kidney disease, or unspecified chronic kidney disease; N18.9 Chronic kidney disease, unspecified; I50.20 Unspecified systolic (congestive) heart failure; J44.9 Chronic obstructive pulmonary disease, unspecified; Z99.81 Dependence on supplemental oxygen; Z79.82 Long term (current) use of aspirin; Z79.899 Other long term (current) drug therapy; Z79.4 Long term (current) use of insulin; Z79.85 Long-term (current) use of injectable non-insulin antidiabetic drugs; Z79.02 Long term (current) use of antithrombotics/antiplatelets
CPT/HCPCS: 66984; 82947; J2250; J3010; J3301; V2632

== ENCOUNTER 2025-02-02 14:47 | Outpatient (AMB) | payer OTHER, SELFPAY ==
--- NOTE | 2025-02-02 15:10 | A.OFFVIS_ITS ---
Intake Visit Reasons: Headaches Allergies ampicillin Allergy (Intermediate, Verified 03/15/23 11:45) Hives penicillin V (PENICILLIN V) Allergy (Intermediate, Verified 03/15/23 11:45) RASH shellfish derived Allergy (Intermediate, Verified 03/15/23 11:45) Hives Sulfa (Sulfonamide Antibiotics) (SULFA (SULFONAMIDE ANTIBIOTICS)) Allergy (Intermediate, Verified 03/15/23 11:45) rash, hives tramadol Allergy (Intermediate, Verified 03/15/23 11:45) Itching, GI upset codeine (CODEINE) Adverse Reaction (Intermediate, Verified 03/15/23 11:45) NAUSEA & VOMITING, GI upset ibuprofen Adverse Reaction (Intermediate, Verified 03/15/23 11:45) Gastrointestinal Upset morphine (MORPHINE) Adverse Reaction (Intermediate, Verified 03/15/23 11:45) NAUSEA & VOMITING HPI Comments Details: The patient is a 69-year-old right-handed female presenting for evaluation of severe headaches. She has been experiencing daily headaches for the last five years, which occur five to six times per day. The pain is characterized as sharp, starting in the left druze and radiating across to the other side and the top of her head, typically lasting for about two minutes. She also reports occasional, stress-induced headaches that can last for a day and a half. She is taking a combination medication containing a barbiturate, acetaminophen, and caffeine three times a day without relief. Her past medical history is significant for two strokes, which were discovered incidentally during a hospitalization in September. An MRI of the brain from that time showed mild cerebral atrophy, mild chronic microvascular changes, and findings suggestive of a prior cortical infarction in the left cerebral artery territory, with no acute abnormalities. An MRA of her neck and brain was unremarkable. She was previously on Plavix but it was stopped due to internal bleeding; she currently takes baby aspirin 81 mg. Her other medical conditions include type 2 diabetes, hypertension, heart trouble, kidney trouble, venous insufficiency, fibromyalgia, and neuropathy. Current medications include Lyrica for fibromyalgia and neuropathy, as well as gabapentin. She lives alone and is in the [facility] [place] program. She also has chronic depression for which she takes an antidepressant. [facility] Medical History History of loss of consciousness Hx of hearing loss On supplemental oxygen by nasal cannula EDD treated with BiPAP Slow to wake up after anesthesia Pain in right shoulder Venereal warts Smoker Polymyalgia rheumatica PVD (peripheral vascular disease) OAB (overactive bladder) Sciatica Low back pain Osteoarthritis Obesity, morbid EDD (obstructive sleep apnea) Neuropathy Muscle cramps Insomnia Hx of hypoglycemia Hypertension Hyperlipemia Hx of fall Headache GERD (gastroesophageal reflux disease) Diabetes Loose, teeth Wears dentures Vitamin D deficiency Oxygen dependent Asthma COPD (chronic obstructive pulmonary disease) Systolic CHF Constipation CKD (chronic kidney disease) Anemia, iron deficiency Seasonal allergies Abnormal stress test Bilateral hearing loss Anxiety PAD (peripheral artery disease) Cataracts, bilateral Depression Stable angina Coronary artery disease LAMB (dyspnea on exertion) Claudication Surgical History Hx of colonoscopy Hx laparoscopic cholecystectomy Hx of section Hx of CABG (2005) History of lobectomy of lung (~2016) Social History Housing Other:: senior apartment Are you a primary student career development specialist to a significant other at home: No Do you presently have visiting nurse or other home services: Yes (BAYRON Martinez and very supportive daughter) Patient Tobacco Use Status: Former Tobacco user Tobacco use type: Cigarette Review of Systems Narrative - Neurological: Reports daily, severe headaches. - Cognitive: Reports her memory is pretty good. - Psychiatric: Reports a depressed mood. - Genitourinary: Reports occasional urinary incontinence with coughing. Physical Exam Neuro Other: Mental Status: Alert and oriented to person, place, and time. Normal attention. Normal spontaneous speech, fluency, and comprehension. No obvious issues with mood and memory. Affect is appropriate. Cranial Nerves: CN II: Visual mcmanus full to confrontation, visual acuity intact. CN III, IV, : Pupils equal, round, reactive to light and accommodation. Extraocular movements are normal. CN V: Facial sensation is normal. CN VII: Facial movements symmetrical. CN VIII: Hearing intact to bedside conversation is normal. CN IX, X: Palate elevates symmetrically. CN XI: Shoulder shrug and head turn symmetrical. CN XII: Tongue midline without atrophy or fasciculations. Motor: No obvious focal arm or leg weakness Reflexes: Deep tendon reflexes are trace to absent Coordination: [id number] is okay Gait and Station: Slow and cautious with a walker Extrapyramidal: Full facial expressions and blinking. No rigidity. Movements are appropriate with no tremor or abnormality. Speech: Normal; no dysarthria or tremor. Assessment & Plan Assessment & Plan (1) Idiopathic stabbing headache: Comment: MRI brain WO at [facility] in Sep 2024: Mild diff atrophy, mod MVD, left subacortical larger ischemic lesion MRA brain and neck at [facility] in Sep 2024: [place] Code(s): G44.85 - Primary stabbing headache Category: Medical (2) Cerebral infarction: Code(s): I63.9 - Cerebral infarction, unspecified Category: Medical Qualifiers: Cerebral infarction mechanism: thrombosis Laterality of affected vessel: left Precerebral and cerebral artery: middle cerebral artery Qualified Code(s): I63.312 - Cerebral infarction due to thrombosis of left middle cerebral artery Plan Impression: 1. Chronic migraine without aura type of headaches 2. Chronic idiopathic stabbing type of headaches 3. Cerebral microvascular disease including a larger left middle cerebral artery subcortical chronic ischemic infarct 4. Multifactorial gait disorder Recommendations: 1. Reassurance and education 2. Continue anti-platelet agent 3. Topiramate 25 mg at night for headache control 4. Sed rate and CRP Orders: Orders EEG Routine Today G40.909 - Epilepsy, unspecified, not intractable, without status epilepticus Erythrocyte Sedimentation Rate Today G44.85 - Primary stabbing headache CRP High Sensitivity Today G44.85 - Primary stabbing headache Medications: New topiramate 25 mg orally one at night; 90 tabs 1RF Coding Level of Care Code New Pt Level 4 (48637) Diagnoses Idiopathic stabbing headache G44.85 Cerebral infarction due to thrombosis of left middle cerebral artery I63.312 Cerebral infarction mechanism: thrombosis Laterality of affected vessel: left Precerebral and cerebral artery: middle cerebral artery
--- OUTSIDE RECORDS SUMMARY | 2025-02-02 20:54 | XMS_ITS | Clinical Summary ---
Author Organization [facility] Prior to 07/25/24 Address [address] [place] [address] Care Team Providers Care Hand Candle Dipper Name Role Phone Rob Lewis MD Primary Care Provider [phone] Allergies Active Allergy Reactions Criticality Noted Date Comments Penicillins Rash High 05/03/2017 Sulfa Antibiotics Rash High 05/03/2017 Medications Medication Sig Dispensed Refills Start Date End Date Status senna-docusate (PERICOLACE) 8.6-50 MG Take 1 tablet by mouth 2 (two) times a day. 0 Active Polyethylene Glycol 3350 (MIRALAX PO) Take by mouth 2 (two) times a day. 0 Active ipratropium-albuterol (DUO-NEB) 0.5-2.5 mg/mL nebulizer Inhale 3 mL into the lungs every 6 (six) hours as needed. 0 Active lidocaine (LIDODERM) 5 % Place 1 patch onto the skin daily. Remove & Discard patch within 12 hours or as directed by MD 0 Active aspirin EC 81 MG tablet Take 1 tablet (81 mg total) by mouth daily. 0 Active nitroglycerin (NITROSTAT) 0.[address] 1 tablet (0.4 mg total) under the tongue every 5 (five) minutes as needed for chest pain. 0 Active carvedilol (COREG) 12.5 MG tablet Take 1 tablet (12.5 mg total) by mouth 2 (two) times a day with meals. 0 Active insulin detemir (LEVEMIR) injection 100 units/mL Inject under the skin every night at bedtime. 0 Active insulin lispro (HumaLOG) injection 100 units/mL Inject under the skin 3 (three) times a day before meals. 0 Active rosuvastatin (CRESTOR) tablet 5 mg Take 1 tablet (5 mg total) by mouth daily. 0 Active metFORMIN (GLUCOPHAGE) tablet 500 mg Take 1 tablet (500 mg total) by mouth 2 (two) times a day with meals. 0 Active hydroxychloroquine (PLAQUENIL) 200 MG tablet Take by mouth daily. 0 Active buPROPion (WELLBUTRIN SR) 200 MG 12 hr tablet Take 1 tablet (200 mg total) by mouth 2 (two) times a day. 0 Active Cholecalciferol (VITAMIN D-3) 1000 units CAPS Take by mouth. 0 Active vitamin C (ASCORBIC ACID) 500 MG tablet Take 1 tablet (500 mg total) by mouth daily. 0 Active insulin aspart (NovoLOG FLEXPEN) injection 100 units/mL Inject under the skin. 0 Active pregabalin (LYRICA) 75 MG capsule Take 1 capsule (75 mg total) by mouth 2 (two) times a day. 0 Active acetaminophen (TYLENOL) 325 MG tablet Take 2 tablets (650 mg total) by mouth every 6 (six) hours as needed for pain. 0 Active lisinopril (PRINIVIL,ZESTRIL) tablet 5 mg Take 1.5 tablets (7.5 mg total) by mouth daily. 0 Active furosemide (LASIX) 20 MG tablet Take 1 tablet (20 mg total) by mouth. 0 Active Fluticasone-Umeclidin -Vilant (TRELEGY ELLIPTA IN) Inhale into the lungs. 0 Active Dulaglutide (TRULICITY SC) Inject under the skin. 0 Active clonazePAM (KlonoPIN) 1 MG tablet Take 1 tablet (1 mg total) by mouth 3 (three) times a day as needed for anxiety. 0 Active Active Problems Problem Noted Date Diagnosed Date Stage 3b chronic kidney disease 04/22/2020 Anemia due to stage 3b chronic kidney disease Congestive heart failure 10/05/2019 Hesitancy of micturition 10/05/2019 Shortness of breath 07/29/2019 Simple chronic bronchitis 01/08/2018 CINV (chemotherapy-induced nausea and vomiting) 12/18/2017 Neoplastic malignant related fatigue 12/18/2017 Acute left-sided thoracic back pain 11/05/2017 Postoperative pain 09/19/2017 Anxiety 07/19/2017 Weight loss 07/19/2017 Malignant neoplasm of upper lobe of right lung 0 05/03/2017 Cancer Staging:Pathologic stage from 09/05/2017:Stage IIIA(pT4, pN0, cM0) - Signed by Marianela Gan MD on 06/07/2018 Coronary artery disease invo lving [place] coronary artery of [place] heart without angina pectoris 05/03/2017 Essential hypertension 05/03/2017 Mixed hyperlipidemia 05/03/2017 EDD (obstructive sleep apnea) 05/03/2017 Hypoalbuminemia 05/03/2017 Anemia complicating neoplastic disease 8 Headache, unspecified headache type 05/03/2017 Resolved Problems Problem Noted Date Diagnosed Date Resolved Date Axillary lymphadenopathy 07/19/2017 Family History Medical History Relation Name Comments Hypertension Mother Delsie Relation Name Status Comments Mother Delsie Social History Tobacco Use Types Packs/Day Years Used Date Smoking Tobacco: Former Cigarettes 0.5 30 Smokeless Tobacco: Never Alcohol Use Standard Drinks/Week Comments Yes 0 (1 standard drink = 0.6 oz pur e alcohol) occasionally Sex and Gender Information Value Date Recorded Sex Assigned at Female 08/23/2021 11:52 AM EDT Gender Identity Not on file Sexual Orientation Not on file Job Start Date Occupation Industry Not on file Not on file Not on file Last Filed Vital Signs Vital Sign Reading Time Taken Comments Blood Pressure 137/48 08/07/2023 2:04 PM EDT Pulse 74 08/07/2023 2:04 PM EDT Temperature 36.3 C (97.3 F) 08/07/2023 2:04 PM EDT Respiratory Rate - - Oxygen Saturation 96% 08/07/2023 2:04 PM EDT Inhaled Oxygen Concentration - - Weight 96.8 kg (213 lb 6.4 oz) 08/07/2023 2:04 P M EDT Height 157.5 cm (5' 2 ) 09/22/2020 11:39 AM EDT Body Mass Index 39.03 09/22/2020 11:39 AM EDT Plan of Treatment Health Maintenance Due Date Last Done Comments Hepatitis C Screening 1955 COVID-19 Vaccine (#1) 05/09/1960 Depression Screening 1967 BMI Counseling 05/09/1973 Preventative Health Evaluation 05/09/1973 Shingrix-Zoster Vaccine (1 of 2) 05/09/1974 Colon Cancer Screening (Colonoscopy) 05/09/2000 Breast Cancer Screening (Mammogram) 05/09/2005 DTap / Tdap / Td (1 - Tdap) 03/23/2016 03/22/2016 Pneumococcal Vaccine (2 of 2 - PCV) 04/12/2018 04/12/2017 Fall Risk Assessment 05/09/2020 Osteoporosis Screening (DEXA Scan) 05/09/2020 Influenza Vaccine (#1) 2024 , 12/11/2016, 11/30/2015, Additional history exists RSV Adult > 60+ Yrs or (1 - 1-dose 75+ series) 05/09/2030 Hepatitis B Vaccines Aged Out No long er eligible based on patient's age to complete this topic RSV Ped < 20 months Aged Out No longe r eligible based on patient's age to complete this topic Care Teams Hand Candle Dipper Relationship Specialty Start Date End Date Rob Lewis MD PCP - General Primary Care 09/22/20
== END 2025-02-02 15:36 | disposition home or self-care (01) ==
LOC: HO.HSM 14:47
PROVIDERS: PCP Internal Medicine Rheumatology; Visit Provider Psychiatry & Neurology Neurology
DX: G44.85 Primary stabbing headache (principal); I63.312 Cerebral infarction due to thrombosis of left middle cerebral artery
CPT/HCPCS: 99204

== ENCOUNTER → 2025-02-02 14:47 | Outpatient (BNVA) | payer OTHER, SELFPAY | PROVIDERS: PCP Internal Medicine Rheumatology; Visit Provider Psychiatry & Neurology Neurology | DX: G44.85 Primary stabbing headache (principal); I63.312 Cerebral infarction due to thrombosis of left middle cerebral artery; G43.709 Chronic migraine without aura, not intractable, without status migrainosus; G62.9 Polyneuropathy, unspecified; M79.7 Fibromyalgia; Z79.899 Other long term (current) drug therapy; Z87.891 Personal history of nicotine dependence; Z79.82 Long term (current) use of aspirin | CPT/HCPCS: 99202 ==